=== PATIENT | female | born 2000 | race Caucasian/White ===

== ENCOUNTER 2022-05-06 11:22 | Emergency (ER) | payer OTHER, SELFPAY ==
[2022-05-06 11:32] VITALS: BP 127/89; PULSE 84; RESP 14; TEMP 36.4; O2SAT 99; BMI 24.4
--- NOTE | 2022-05-06 15:26 | ED_ITS ---
HPI - Head Injury General Chief complaint: Head Injury/Pain Stated complaint: Hit head earlier, headache Time Seen by Provider: 05/06/22 11:31 History of Present Illness HPI Narrative: 21-year-old young woman with history of migraines on prophylactic therapy with nortriptyline, presenting to the emergency department after head injury. Slipped and fell on the ice. This occurred a little over an hour ago. There was no loss of consciousness. She does have mild nausea which would not be distinct from her headaches. She is having onset of a mild headache at this point. No loss of sensation or strength. No visual changes. However for about 10 minutes after she struck her head on the posterior upper aspect, did see sparkles of light which she would often describe as an aura historically. Is not having any neck or back pain. Does not feel cognitively slowed. Migraines typically do involve an aura for her. No discoordination. Related Data Home Medications Medication Instructions Recorded Confirmed BCP DAILY 05/06/22 nortriptyline 50 mg capsule 30 mg PO Q12H PRN 05/06/22 05/06/22 sertraline 100 mg tablet 100 mg PO DAILY 05/06/22 05/06/22 Allergies Allergy/AdvReac Type Severity Reaction Status Date / Time No Known Drug Allergies Allergy Verified 05/06/22 11:35 Review of Systems Status of ROS: Reports: 6 or more systems reviewed and unremarkable except as noted in History and below [facility] Social History Smoking Status: Never smoker Do you use any of these nicotine containing products: None How often do you have a drink containing alcohol: never AUDIT-C Alcohol total score: 0 Non-prescribed substance use: denies use Exam Narrative: Exam Narrative: Pleasant. NAD. Smaller stature. Moving easily. Speaking fluidly. Cranial nerves 2-12 look to be intact. Full strength throughout. Negative Romberg's. Normal toe heel. No nystagmus. Cognitively sharp demonstrating ease with serial sevens. Head with a inch and a half soft swelling with superficial erythema/abrasion on the upper right occipital scalp. Neck is supple and nontender. Heart in regular rate and rhythm. She is well-perfused peripherally. Moving all extremities without difficulty. Back without deformity also nontender. Const: Vital Signs, click to edit/add: Vital Signs - 24 hr 05/06/22 11:32 Temperature 97.5 F L Pulse Rate [Right Pulse Oximeter] 84 Respiratory Rate 14 Blood Pressure [Ri ght Upper Arm] 127/89 Pulse Oximetry 99 Oxygen Delivery Me thod Room Air Documenting provider has reviewed patient's vital signs: yes Course Vital Signs Vital signs: Initial Vital Signs Temperature 97.5 F L 05/06/22 11:32 Temperature Source Temporal Artery Scan 05/06/22 11:32 Pulse Rate 84 05/06/22 11:32 Respiratory Rate 14 05/06/22 11:32 Blood Pressure 127/89 05/06/22 11:32 Blood Pressure Mean 101 05/06/22 11:32 Blood Pressure Position Sitting 05/06/22 11:32 Pulse Oximetry 99 05/06/22 11:32 Oxygen Delivery Method 05/06/22 11:32 Vital Signs Temperature 97.5 F L 05/06/22 11:32 Pulse Rate 84 05/06/22 11:32 Respiratory Rate 14 05/06/22 11:32 Blood Pressure 127/89 05/06/22 11:32 Pulse Oximetry 99 05/06/22 11:32 Oxygen Delivery Method 05/06/22 11:32 Temperature 97.5 F L 05/06/22 11:32 Pulse Rate 84 05/06/22 11:32 Respiratory Rate 14 05/06/22 11:32 Blood Pressure 127/89 05/06/22 11:32 Pulse Oximetry 99 05/06/22 11:32 Oxygen Delivery Method 05/06/22 11:32 MDM - Head Injury MDM Narrative Medical decision making narrative: Does not feel that she needs treatment for what is a mild headache at this point. Is not demonstrating signs of concussion for me here. I think at this time can defer head imaging. Does not have any neck or back pain. Discharge Plan Discharge Clinical Impression: Hematoma, Closed head injury Patient Disposition: Home, Self-Care Condition: Stable Additional Instructions: I would ice this area of impact, a couple of times today. Stay well-hydrated. Rest if possible. Return for marked increase in atypical pain, new and focal numbness/tingling, new and focal weakness, unusual somnolence. Signs or symptoms of a concussion might be nausea or headache upon exertion which can also be an indication to back off that level of activity and reassess in a week.? Concussion can also be represented by smoldering nausea or smoldering headache, difficulty with concentration, mood lability, general somnolence, sense of persistent fog or dizziness/lightheadedness.? If these symptoms are becoming apparent and continuing beyond 7-10 days, be re-evaluated for further recommendations. Prescriptions: No Action sertraline 100 mg tablet 100 mg PO DAILY nortriptyline 50 mg capsule 30 mg PO Q12H PRN BCP DAILY Stand Alone Forms: [facility] Info Instructions
== END 2022-05-06 12:48 | disposition home or self-care (01) ==
PROVIDERS: Emergency Provider Family Medicine
DX: S00.93XA Contusion of unspecified part of head, initial encounter (principal); W00.9XXA Unspecified fall due to ice and snow, initial encounter
CPT/HCPCS: 99282; 99283